=== PATIENT | female | born 1960 | race African-American/Black ===

== ENCOUNTER 2016-09-18 16:36 | Emergency (ER) | payer SELFPAY ==
[~2016-09-18] VITALS: Ht 157.5 cm; Wt 75.0 kg
[~2016-09-18 16:36] MED LIST: CYCL1TAB29 PO; HYDR-3535 PO; MOBI15TA PO; PRIN20TA2 PO
[2016-09-18 16:38] VITALS: BP 203/103; PULSE 71; RESP 15; TEMP 98.4; O2SAT 98
--- NOTE | 2016-09-18 16:47 | PD ---
Physical Exam Time Seen by Provider: 16:45 Narrative 55yo F c/o chest pain that lasted for about 30 minutes today. Occasional heart palpitations. Denies SOB. Patient seen in triage. VS reviewed. Patient awaiting bed placement. Data Data Last Documented VS Vital Signs Date Time Temp Pulse Resp B/P Pulse Ox O2 Delivery O2 Flow Rate FiO2 09/18/16 16:38 98.4 71 15 203/103 98 MDM Supervised Visit with BEKA: Anne David Sep 18, 2016 16:47
== END 2016-09-18 18:48 | disposition left against medical advice (07) ==
LOC: NED 16:36
DX: R07.9 Chest pain, unspecified (principal); R00.2 Palpitations
CPT/HCPCS: 99281

== ENCOUNTER 2017-09-03 07:30 | Inpatient (IN) ==
[2017-09-17] MEDS ORDERED: Tobramycin Sulfate 1,200 MG Vial (for ortho/sterile core) OTHER ONE (05:43)
[2017-09-17] MEDS ORDERED: Metoprolol Tartrate 25 MG Tablet PO SCH (06:15)
[2017-09-17] MEDS ORDERED: Sodium Chlor 0.9% Inj 60 ML, Bupivacaine Liposo PF 1.3% Inj 20 ML P-ARTICULR SCH ×2 (06:15)
[2017-09-17] MEDS ORDERED: Chlorhexidine Gluconate 2% 1 Pack (2 Cloths) TOPICAL SCH (06:15)
[2017-09-17] MEDS ORDERED: Bupivacaine Liposomal PF 1.3% Inj 20 ML Vial ONE (06:16)
[2017-09-17] MEDS ORDERED: ceFAZolin 2 GM Premix Inj 2 GM/50 ML PIGGYBACK IV.SIG ONE (06:19)
[2017-09-17] MEDS ORDERED: Vancomycin Inj 1 GM/200 ML PIGGYBACK IV.SIG ONE (06:19)
[2017-09-17] MEDS ORDERED: TRANEXAMIC ACID IV.SIG SCH ×2 (07:00→09:15)
[2017-09-17] MEDS ORDERED: Sodium Chlor 0.9% Inj 500 ML IV.SIG SCH (07:00)
[2017-09-17] MEDS ORDERED: ceFAZolin 2 GM Premix Inj 2 GM/50 ML PIGGYBACK IV.SIG SCH ×2 (07:00→12:00)
[2017-09-17] MEDS ORDERED: Vancomycin Inj 1 GM/200 ML PIGGYBACK IV.SIG SCH (07:00)
[2017-09-17] MEDS ORDERED: SODIUM CHLOR 0.9% IV.SIG SCH ×2 (07:00→09:15)
[2017-09-17] MEDS ORDERED: Naloxone Inj 0.4 MG/ML Vial IV.PUSH PRN (09:51)
[2017-09-17] MEDS ORDERED: Post-op Orders (for Pharmacy) OTHER STA (09:54)
[2017-09-17] MEDS ORDERED: Bisacodyl 10 MG Supp RECTAL PRN (09:54)
[2017-09-17] MEDS ORDERED: Aluminum/Magnesium/Simethacone Susp 30 ML UDC PO PRN (09:54)
--- NOTE | 2017-09-17 10:00 | MP ---
cc: Pete Gonsales MD DATE OF OPERATION: 09/17/2017 PREOPERATIVE DIAGNOSIS: 1. Posttraumatic osteoarthritis left knee. 2. Several years status post anterior cruciate ligament reconstruction with probably allograft. 3. Cyst/mass medial border patellar tendon. POSTOPERATIVE DIAGNOSES: 1. Posttraumatic osteoarthritis left knee. 2. Several years status post anterior cruciate ligament reconstruction with probably allograft. 3. 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 OPERATIVE PROCEDURE; 1. TKA LEFT KNEE using vanguard knee system Level of difficulty, moderate because of previous surgery, scar tissue etc 2. evacuation ganglion cyst patellar tendon SURGEON: Pete Gonsales MD ANESTHESIA: General. TECHNIQUE: After induction of general anesthesia, the left lower extremity thoroughly prepped with alcohol and ChloraPrep and draped in routine fashion. After application of Esmarch bandage, tourniquet inflated to 300 mmHg. A vertical incision was made slightly medial to midline incorporating the lower end of the previous scar, deepened through subcutaneous tissue and scar tissue. Medial parapatellar arthrotomy incision was carried out. The medial capsular structures elevated off of the tibia excising osteophytes at the same time. Anterior debridement was carried out. Patella was examined. The femoral canal opened anterior to the posterior cruciate ligament and the distal femoral cutting guide set at 6 degrees was used to make the distal femoral cut. The proximal tibial cut was done using an external tibial guide referencing 2 mm from the lower most portion of the medial tibial plateau. AP femoral guide was used for a 67.5 mm AP cutting block and AP and chamfer cuts were made. The patient had quite a bit of scar tissue. Residual sutures, as well as a patella baja due to previous surgery making surgery moderately difficult compared to normally. It also took more time and than he would normally take. The soft tissue nodularity in the medial border of the patellar tendon was checked. It was noted to be a ganglion cyst and this was evacuated and scraped. No formal excision carried out because it is in the substance of the patellar tendon. Posterior cuts were checked. Osteotome was used. The knee was quite tight still even with the spacer block, especially in flexion. The medial side of the tibia was revisited and both anterior and posteriorly release carried out excising osteophytes at the same time. Additional tibial bone had to be removed because there was tightness both in flexion and extension. Once all the cuts were made and balance was ascertained with the use of a spacer block, patella was prepared and all bony surfaces prepared to receive the trials and the trials were used and the 10 mm slight hyperextension with a 12 mm was a little bit tight. Trial implants removed. Diluted Exparel was injected all around the joint. Femoral canal plugged with bone. Bony surfaces were thoroughly lavaged and dried using 2 units of Simplex cement with 1200 mg tobramycin in it. The tibia was cemented first. All excess cement removed, followed by the femur and then extending the knee with a 12 mm spacer. The patella was cemented following routine technique. Once cement solidified, the knee was checked and the 12 mm looks very good. The trial implant was removed. The joint was thoroughly lavaged and dried and hemostasis obtained with cautery. A 12 mm spacer was placed and clipped. Final position, alignment and stability were all good. The tourniquet was released after the implants were cemented in place, 78 minute tourniquet time. The knee was closed in mid flexion with some interrupted #2 Vicryl sutures, but mostly closed with #2 Quill. Hemovac drain left in suprapatellar pouch. Subcutaneous tissues were closed with 2-0 Rapide Vicryl and the skin with 3-0 subcuticular sutures and postop dressings. An ice bladder placed and secured with Andre bandage. The patient tolerated the procedure well. TRANSFUSIONS AND COMPLICATIONS: None. POSTOPERATIVE CONDITION: Satisfactory. PROGNOSIS: Good. MD JOANNA Sanchez/CLEM , 09:39 AM , 09:49 AM MARISELA
[2017-09-17] MEDS ORDERED: Morphine Inj 4 MG/ML Vial ONE (10:09)
[2017-09-17] MEDS ORDERED: fentaNYL Citrate Inj 100 MCG/2 ML Ampul ONE (10:09)
[2017-09-17] MEDS ORDERED: *morphine SULFATE 4 MG/ML PERIprocedure ONLY ONE (10:10)
[2017-09-17] MEDS ORDERED: *Meperidine Inj 25 MG/ML Vial PERIprocedural Use ONLY ONE (10:11)
[2017-09-17] MEDS: Ketorolac Inj 30 MG/ML (IVP) Vial IV.PUSH SCH ×2 (10:30→16:28)
[2017-09-17] MEDS: Morphine Inj 30 MG/30 ML PCA.VIAL PCA PRN ×2 (10:30→18:44)
[2017-09-17] MEDS: Sod Chloride 0.9% Inj 1,000 ML IV.CONT SCH ×2 (10:30→22:25)
[2017-09-17] MEDS ORDERED: Neostigmine Inj 5 MG/5 ML Syringe IV.PUSH ONE (12:00)
[2017-09-17] MEDS ORDERED: Glycopyrrolate Inj 1 MG/5 ML Syringe IV.PUSH ONE (12:00)
[2017-09-17] MEDS ORDERED: Lidocaine PF 1% Inj 5 ML Syringe INFILTRATN ONE (12:00)
--- NOTE | 2017-09-17 12:02 | XR ---
EXAM DATE: 09/17/2017 11:31 AM EDT AGE/SEX: 56 years / Female INDICATIONS: Post op left knee surgery. CLINICAL DATA: This is the patient's initial encounter. Patient reports that signs and symptoms have been present for 1 day and indicates a pain score of Nonresponsive. MEDICAL/SURGICAL HISTORY: Non-responsive. Non-responsive. COMPARISON: No prior exams available for comparison. FINDINGS: A total knee arthroplasty is noted. The tibial and femoral components appear well seated. Surgical dr sunshine is seen at the anterior aspect of the knee in the suprapatellar region. There is a small amount o f subcutaneous air, as expected. Bone density is normal. CONCLUSION: Status post total knee arthroplasty. Electronically signed by: Familia Coleman MD 09/17/2017 11:32 AM EDT
--- NOTE | 2017-09-17 17:03 | ECG ---
Date Performed: 09/17/2017 Time Performed: 06:37:31 PTAGE: 56 years EKG: Sinus rhythm NORMAL ECG Since the PREVIOUS TRACING , no significant change noted PREVIOUS TRACIN07/18/2012 11.56 DOCTOR: June Cuellar Interpretating Date/Time 09/17/2017 17:03:00
[2017-09-17] MEDS: Vancomycin Inj 1,000 MG in Sodium Chlor 0.9% Inj 250 ML IV.SIG SCH (18:13)
[2017-09-17] MEDS: ceFAZolin Inj 2,000 MG in Sodium Chlor 0.9% Inj 100 ML IV.SIG SCH (22:21)
[2017-09-17] MEDS: Senna/Docusate Sodium 8.6/50 MG Tablet PO SCH (22:22)
[2017-09-18] MEDS: Ketorolac Inj 30 MG/ML (IVP) Vial IV.PUSH SCH ×5 (00:36→22:13)
[2017-09-18] MEDS: ceFAZolin Inj 2,000 MG in Sodium Chlor 0.9% Inj 100 ML IV.SIG SCH (02:14)
[2017-09-18 04:53] LABS: Hematocrit 30.9 % (35.0-46.0); Hemoglobin 10.4 gm/dL (11.6-15.3)
[2017-09-18] MEDS: Vancomycin Inj 1,000 MG in Sodium Chlor 0.9% Inj 250 ML IV.SIG SCH (05:44)
[2017-09-18] MEDS: Senna/Docusate Sodium 8.6/50 MG Tablet PO SCH ×2 (08:32→22:13)
[2017-09-18] MEDS: Rivaroxaban 10 MG Tablet PO SCH (08:32)
--- NOTE | 2017-09-18 14:00 | P.DCO ---
- Physical Therapy Knee: Total knee, Full weight bearing Left Lower Extremity Weight Bearing: Weight bearing as tolerated Left Lower Extremity Range of Motion: Active assistive ROM - Nursing RN days per week: 3 Nursing: Dressing changes Dressing changes: Other (leave present dressing intact 7-10 days, OK to shower start 6 days [post op) - Certification Need for Home Health services: I have seen patient Sneha Cohen on 09/18/17. My clinical findings support the need for the requested home health care services because: Need for Home Health Services: Limited ability to care for self Homebound Certification: I certify that my clinical findings support that this patient is homebound because: Homebound Certification: Unsafe to leave home unassisted, Unable to use public transportation
--- NOTE | 2017-09-18 14:07 | P.PNOP ---
Subjective Interval history: One day post total knee left doing very well Physical Exam Vital signs: Vital Signs 09/17/17 16:00 09/17/17 19:02 09/17/17 19:14 Temperature 97.6 F 98.8 F Pulse Rate 70 77 Respiratory Rate 18 18 16 Blood Pressure 159/88 H 156/76 H Pulse Oximetry 98 97 09/17/17 22:36 09/17/17 23:50 09/18/17 02:56 Temperature 98.7 F Pulse Rate 76 Respiratory Rate 5 L 18 16 Blood Pressure 136/82 Pulse Oximetry 97 09/18/17 05:06 09/18/17 08:00 09/18/17 12:00 Temperature 97.9 F 98.3 F 98.1 F Pulse Rate 74 60 62 Respiratory Rate 18 15 15 Blood Pressure 123/74 123/72 158/82 H Pulse Oximetry 98 99 100 Intake & Output 09/17/17 09/18/17 09/18/17 18:59 06:59 18:59 Intake Total 2750 / 2750 2280 / 2280 100 / 100 Output Total 920 / 920 200 / 200 Balance 1830 / 1830 2080 / 2080 100 / 100 Weight 74.2 kg 74.2 kg Intake: IV 1800 / 1800 100 / 100 NS Inj 1,000 ML @ 100 mls/hr IV 1000 / 1000 .CONT .Q10H JUAN Rx#:[id number] Ofirmev Inj 1,000 mg In 100 ml 100 / 100 100 / 100 @ 400 mls/hr IV.SIG Q12HR JUAN Rx#:[id number] Vancomycin Inj 1,000 MG In NS 500 / 500 Inj 250 ML @ 250 mls/hr IV.SIG Q12H JUAN Rx#:[id number] Ancef Inj 2,000 MG In NS Inj 200 / 200 100 ML @ 100 mls/hr IV.SIG Q6H JUAN Rx#:[id number] Oral 480 / 480 Anesthesia Amount 2600 / 2600 Other 150 / 150 Output: Estimated Blood Loss 40 / 40 Urine Amount (Catheter) 800 / 800 Straight 800 / 800 Wound Drainage 80 / 80 200 / 200 # 1 Left Knee 80 / 80 200 / 200 Other: # Voids 1 3 Date of Last Bowel Movement 09/16/17 # Bowel Movements 0 Narrative: She is alert and oriented. She is sitting in class on a wheelchair. She can move her left knee well. Dressings are dry. Drain still in. She moves her toes well. - Urinary Catheter Management Straight Cath placed during this visit: no Results - Labs CBC & Chem 7: 09/18/17 04:10 Laboratory Results - last 24 hr 09/18/17 04:10 Hgb 10.4 L Hct 30.9 L - Imaging Postop x-rays show good position and alignment of total knee replacement Assessment and Plan - Assessment and Plan Discharge home with home health care tomorrow. Remove the Hemovac drain this afternoon.
[2017-09-18 17:41] LABS: Anion Gap 8 meq/L (5-15); Blood Urea Nitrogen 21 mg/dL (7-18); Carbon Dioxide 24.4 meq/L (21.0-32.0); Chloride 108 meq/L (98-107); Glomerular Filtration Rate Greater Than 89 mL/min (>89); Glucose,Random 101 mg/dL (74-106); Potassium 3.6 meq/L (3.5-5.1); Sodium 140 meq/L (136-145)
[2017-09-18] MEDS: Sod Chloride 0.9% Inj 1,000 ML IV.CONT SCH (23:14)
[2017-09-19] MEDS: Sod Chloride 0.9% Inj 1,000 ML IV.CONT SCH (04:13)
[2017-09-19] MEDS: Ketorolac Inj 30 MG/ML (IVP) Vial IV.PUSH SCH (04:54)
[2017-09-19] MEDS: Senna/Docusate Sodium 8.6/50 MG Tablet PO SCH (09:04)
[2017-09-19] MEDS: Rivaroxaban 10 MG Tablet PO SCH (09:04)
== END 2017-09-19 16:23 | disposition home health service (06) ==
LOC: HSDI 09-17 05:33 → EDSTATUS 09-17 07:00 → N06 09-17 13:20
PROVIDERS: ADMIT Orthopaedic Surgery; ATTEND Orthopaedic Surgery